=== PATIENT | female | born 1990 ===

== ENCOUNTER 2018-01-11 08:54 | Emergency (ER) | payer BC ==
[2018-01-11 09:08] VITALS: RESP 18
[2018-01-11] MEDS ORDERED: Sodium Chloride 0.9% 1,000 ML IV ONE (09:48)
--- NOTE | 2018-01-11 09:53 | C.PDOC ---
History Of Present Illness 27 year old female, with PMHx of anemia, presents to ED for evaluation of lower abdominal pain that developed this morning. Pt notes that she also started her menses today but normally does not have pain with menses. Describes the pain as "cramping". Normal BM today. Denies n/v/d, vaginal discharge, dysuria, urinary frequency, or fever. Meds: B12, Iron, Zyrtec Time Seen by Provider: 01/11/18 09:19 Chief Complaint (Nursing): Abdominal Pain History Per: Patient, Nuclear Medicine Tech History/Exam Limitations: no limitations Onset/Duration Of Symptoms: Hrs Current Symptoms Are (Timing): Still Present Location Of Pain/Discomfort: Suprapubic Radiation Of Pain To:: None Quality Of Discomfort: "Pain" Associated Symptoms: denies: Loss Of Appetite, Back Pain, Constipation, Urinary Symptoms Exacerbating Factors: None Alleviating Factors: None Recent travel outside of the [place]: No Additional History Per: Patient Abnormal Vaginal Bleeding: No Past Medical History Reviewed: Historical Data, Nursing Documentation, Vital Signs Vital Signs: Last Vital Signs Temp 98.2 F 01/11/18 11:02 Pulse 86 01/11/18 11:02 Resp 18 01/11/18 11:02 BP 110/72 01/11/18 11:02 Pulse Ox 100 01/15/18 08:29 - Medical History PMH: Anemia, Asthma Family History: States: Unknown Family Hx - Social History Hx Alcohol Use: No Hx Substance Use: No - Immunization History Hx Tetanus Toxoid Vaccination: No Hx Influenza Vaccination: No Hx Pneumococcal Vaccination: No Review Of Systems Except As Marked, All Systems Reviewed And Found Negative. Constitutional: Negative for: Fever, Chills Gastrointestinal: Positive for: Abdominal Pain. Negative for: Nausea, Vomiting , Diarrhea, Constipation Genitourinary: Negative for: Dysuria, Frequency, Hematuria, Vaginal Discharge Musculoskeletal: Negative for: Back Pain Neurological: Negative for: Headache, Dizziness Physical Exam - Physical Exam Appears: Non-toxic, No Acute Distress Skin: Normal Color, Warm, Dry Head: Atraumatic, Normacephalic Eye(s): bilateral: Normal Inspection, EOMI Nose: Normal Oral Mucosa: Moist Neck: Normal ROM, Supple Chest: Symmetrical Cardiovascular: Rhythm Regular Respiratory: Normal Breath Sounds, No Rales, No Rhonchi, No Wheezing Gastrointestinal/Abdominal: Soft, Tenderness (suprapubic), No Guarding, No Rebound Back: No CVA Tenderness, No Vertebral Tenderness Extremity: Normal ROM Neurological/Psych: Oriented x3, Normal Speech ED Course And Treatment - Laboratory Results Result Diagrams: 01/11/18 10:02 01/11/18 10:02 O2 Sat by Pulse Oximetry: 100 (RA) Pulse Ox Interpretation: Normal Progress Note: Blood work, UA ordered and reviewed. Pt was given Toradol and IV fluids. Pt notes she takes NSAIDs such as motrin in the past without allergic reaction. On re-evaluation, patient is resting comfortably, abdomen remains soft , and patient is tolerating PO. Pt notes the pain has resolved and she feels comfortable going home. Discussed limitations of work up though since she is asymptomatic no further studies are indicated, instructed to return to ER if symptoms persist or worsen. Patient instructioned to follow up with PMD in 1-3 days. Disposition - Disposition Disposition: HOME/ ROUTINE Disposition Time: 10:52 Condition: STABLE Additional Instructions: Vaya a chand mdico o la clnica en 1-3 hawkins sin falta, para mas evaluacin. [place] los medicamentos shanna indicado. Volver a la matthew de emergencia en cualquier momento si los sntomas persisten o empeoran. 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 - Scribe Statement The provider has reviewed the documentation as recorded by the Scribe Dank Michaud All medical record entries made by the Dimaibcandice were at my direction and personally dictated by me. I have reviewed the chart and agree that the record accurately reflects my personal performance of the history, physical exam, medical decision making, and the department course for this patient. I have also personally directed, reviewed, and agree with the discharge instructions and disposition.
[2018-01-11 09:56] LABS: SQUAMOUS EPITHIAL 2 /hpf (0-5); URINE BACTERIA RARE (<OCC); URINE BILIRUBIN NEGATIVE (NEGATIVE); URINE BLOOD 3+ (NEGATIVE); URINE CLARITY Hazy (Clear); URINE COLOR Yellow (YELLOW); URINE GLUCOSE (UA) NORMAL (Normal); URINE LEUKOCYTE ESTERASE NEG Leu/uL (Negative); URINE PROTEIN NEGATIVE (NEGATIVE)
[2018-01-11 10:06] LABS: BASO % 0.3 % (0.0-2.0); EOS # 0.1 K/uL (0.0-0.7); EOS % 0.6 % (0.0-4.0); HEMOGLOBIN 13.3 g/dL (11.0-16.0); LYMPH # 1.1 K/uL (1.0-4.3); LYMPH % 13.1 % (20.0-40.0); MEAN CELL VOLUME 88.1 fL (81.0-99.0); MEAN CORPUSCULAR HEMOGLOBIN 30.4 pg (27.0-31.0); MEAN CORPUSCULAR HGB CONC 34.5 g/dL (33.0-37.0); MEAN PLATELET VOLUME 8.5 fL (7.2-11.7); MONO # 0.5 K/uL (0.0-0.8); MONO % 5.7 % (0.0-10.0); NEUT # 6.5 K/uL (1.8-7.0); NEUT % 80.3 % (50.0-75.0); RBC 4.36 Mil/uL (3.80-5.20); RED CELL DISTRIBUTION WIDTH 13.3 % (11.5-14.5)
[2018-01-11 10:20] LABS: ALB/GLOB RATIO 1.2 (1.0-2.1); ALBUMIN 4.1 g/dL (3.5-5.0); ALT/SGPT 13 U/L (9-52); AST/SGOT 24 U/L (14-36); BLOOD UREA NITROGEN 5 mg/dL (7-17); CALCIUM 9.6 mg/dl (8.6-10.4); GFR AFRICAN-AMERICAN > 60; GFR NON-AFRICAN AMERICAN > 60
[2018-01-11] MEDS ORDERED: Sodium Chloride 0.9% 1,000 ML ONE (10:26)
[2018-01-11 11:02] VITALS: BP 110/72; PULSE 86; TEMP 98.2
[2018-01-15 08:27] VITALS: O2SAT 100
== END 2018-01-11 11:04 | disposition home or self-care (01) ==
LOC: C.ER 08:54
DX: N94.6 Dysmenorrhea, unspecified (principal); R10.30 Lower abdominal pain, unspecified
CPT/HCPCS: 80053; 81001; 84703; 85025; 96361; 96374; 99284; J1885; J7030